=== PATIENT | male | born 1960 | race Caucasian/White ===

== ENCOUNTER → 2024-06-13 07:27 | Outpatient (REF) | payer BC, SELFPAY | LOC: DHSLP 07:27 | PROVIDERS: ATTENDING PHYSICIAN Internal Medicine; FAMILY PHYSICIAN Family Medicine | DX: G47.33 Obstructive sleep apnea (adult) (pediatric) (principal) | CPT/HCPCS: 95811 ==

== ENCOUNTER → 2024-08-07 09:07 | Outpatient (REF) | payer BC, SELFPAY | LOC: MRI 3T 09:07 | PROVIDERS: ATTENDING PHYSICIAN Physician Assistant Surgical; FAMILY PHYSICIAN Family Medicine | DX: M50.30 Other cervical disc degeneration, unspecified cervical region (principal) | CPT/HCPCS: 72141 ==

== ENCOUNTER 2025-05-01 06:24 | Day surgery (SDC) | payer BC, SELFPAY | END 2025-05-01 13:12 | disposition home or self-care (01) | LOC: GI 06:24 | PROVIDERS: ATTENDING PHYSICIAN Internal Medicine Gastroenterology | DX: K22.89 Other specified disease of esophagus (principal); K44.9 Diaphragmatic hernia without obstruction or gangrene; K31.7 Polyp of stomach and duodenum; R12 Heartburn | CPT/HCPCS: 43239; 88305 ==